=== PATIENT | male | born 1955 | race Caucasian/White ===

== ENCOUNTER 2019-07-02 05:10 | Inpatient (IN) ==
[2019-07-02] MEDS ORDERED: Acetaminophen 325 MG TABLET PO PRN (07:24)
[2019-07-02] MEDS ORDERED: Naloxone 0.4 MG/ML INJ IVP PRN (07:24)
[2019-07-02] MEDS ORDERED: Ondansetron 4 MG/2 ML VIAL IVP PRN (07:24)
[2019-07-02] MEDS ORDERED: *HR* Dextrose 50 % in Water (Syg) 50 ML SYRINGE IVP PRN (08:15)
[2019-07-02] MEDS ORDERED: D5% in Water 1,000 ML IVC PRN (08:15)
[2019-07-02] MEDS ORDERED: Dextrose Gel 15 GM/37.5 ML TUBE PO PRN ×2 (08:15)
[2019-07-02] MEDS ORDERED: Nitroglycerin 0.4 MG TAB.SUBL SL PRN (08:18)
[2019-07-02] MEDS ORDERED: *HR* Heparin 5,000 UNIT/ML VIAL IVP PRN ×2 (08:29)
[2019-07-02 08:42] LABS: INR 1.3; Prothrombin Time 14.5 Seconds (9.4-12.1)
[2019-07-02 08:44] LABS: Activated Partial Thrombo Time 35.5 Seconds (26.0-36.0); Basophils # 0.1 K/mcL (0.0-0.2); Basophils % 0.5 %; Eosinophils % 0.4 %; Hematocrit 40.3 % (37.5-50.1); Hemoglobin 13.1 g/dL (12.9-16.9); Immature Granulocytes % 0.4 % (0-4); Lymphocytes # 1.9 K/mcL (0.6-4.6); Lymphocytes % 17.6 %; Mean Corpuscular HGB Conc 32.5 g/dL (31.6-35.5); Mean Corpuscular Volume 89.2 fL (83.0-100.0); Monocytes % 9.3 %; Neutrophils # 7.7 K/mcL (1.6-8.9); Platelet Count 193 K/mcL (140-400); Red Blood Count 4.52 M/mcL (4.19-5.50); Red Cell Distribution Width 13.2 % (11.5-14.5); Segmented Neutrophils % 71.8 %; White Blood Count 10.7 K/mcL (4.3-11.1)
[2019-07-02 08:56] LABS: Alanine Aminotransferase 25 Units/L (7-52); Albumin/Globulin Ratio 1.3 (1.1-2.2); Alkaline Phosphatase 66 Units/L (34-104); Aspartate Amino Transferase 20 Units/L (13-39); BUN/Creatinine Ratio 22 (6-26); Bilirubin,Total 0.8 mg/dL (0.3-1.0); Blood Urea Nitrogen 19 mg/dL (8-23); Calcium 8.9 mg/dL (8.6-10.3); Carbon Dioxide 26 mEq/L (23-29); Chloride 100 mEq/L (98-107); Chol/HDL Ratio 3.6 (0-4.9); Cholesterol 100 mg/dL (< 200); Globulin 3.1 g/dL (2.4-3.5); Glucose 251 mg/dL (70-105); HDL Cholesterol 28 mg/dL (40-59); LDL Cholesterol,Calculated 55 mg/dL (0-99); Magnesium 1.8 mg/dL (1.6-2.6); Osmolality,Calculated 295 (280-300); Phosphorous 3.7 mg/dL (2.7-4.5); Potassium 3.8 mEq/L (3.5-5.1); Sodium 137 mEq/L (136-145); Total Protein 7.1 g/dL (6.4-8.9); Triglycerides 83 mg/dL (< 150); eGFR For African Americans > 60 (> 60); eGFR For Non-African Americans > 60 (> 60)
[2019-07-02] MEDS ORDERED: Azithromycin 500 MG in 0.9 % Sodium Chloride 250 ML IVPB SCH (09:00)
[2019-07-02] MEDS ORDERED: Isovue-370 500 ML BOTTLE IVP ONE (09:04)
[2019-07-02] MEDS: Furosemide 40 MG/4 ML VIAL IVP SCH ×2 (09:50→19:52)
[2019-07-02] MEDS: cefTRIAXone 1,000 MG in Water for inj. (sterile) 10 ML IVP SCH (09:51)
[2019-07-02] MEDS: Metoprolol XL (24 HR) Succ 25 MG TAB.ER.24H PO SCH (09:51)
[2019-07-02 10:13] LABS: Troponin I 0.81 ng/mL (< 0.04)
[2019-07-02 11:11] LABS: Adenovirus Not Detected (Not Detect); Bordetella Pertussis Not Detected (Not Detect); Chlamydophila pneumoniae Not Detected (Not Detect); Coronavirus 229E Not Detected (Not Detect); Coronavirus HKU1 Not Detected (Not Detect); Coronavirus NL63 Not Detected (Not Detect); Coronavirus OC43 Not Detected (Not Detect); Human Metapneumovirus Not Detected (Not Detect); Human Rhinovirus/Enterovirus Not Detected (Not Detect); Influenza A Subtype 2009 H1 Not Detected (Not Detect); Influenza B Not Detected (Not Detect); Mycoplasma pneumoniae Not Detected (Not Detect); Parainfluenza Virus 1 Not Detected (Not Detect); Parainfluenza Virus 2 Not Detected (Not Detect); Parainfluenza Virus 3 Not Detected (Not Detect); Parainfluenza Virus 4 Not Detected (Not Detect); Respiratory Syncytial Virus Not Detected (Not Detect)
[2019-07-02] MEDS: Insulin LISPRO 300 UNITS/3 ML VIAL SQ SCH ×3 (11:38→23:32)
[2019-07-02] MEDS: Heparin 25,000 UNIT/250 ML D5W 25,000 UNIT/250 ML IV.SOLN IVC SCH (11:48)
[2019-07-02] MEDS: Azithromycin 250 MG TABLET PO SCH (18:07)
[2019-07-02] MEDS: Gabapentin 300 MG CAPSULE PO SCH (21:45)
[2019-07-03] MEDS: Heparin 25,000 UNIT/250 ML D5W 25,000 UNIT/250 ML IV.SOLN IVC SCH (02:26)
[2019-07-03 02:39] LABS: Bilirubin,Urine Negative (Negative); Blood,Urine Negative (Negative); Clarity,Urine Clear (Clear); Color,Urine Yellow (Yellow); Glucose,Urine (UA) Normal (Normal); Ketones,Urine Negative (Negative); Leukocyte Esterase,Urine Negative (Negative); Nitrite,Urine Negative (Negative); Protein,Urine Negative (Neg-Trace); Specific Gravity,Urine 1.024 (1.010-1.025); Urobilinogen,Urine Normal (Normal)
[2019-07-03] MEDS: Insulin LISPRO 300 UNITS/3 ML VIAL SQ SCH ×4 (05:36→22:47)
[2019-07-03] MEDS: Aspirin 81 MG TAB.CHEW PO SCH (08:49)
[2019-07-03] MEDS: cefTRIAXone 1,000 MG in Water for inj. (sterile) 10 ML IVP SCH (08:49)
[2019-07-03] MEDS: Metoprolol XL (24 HR) Succ 25 MG TAB.ER.24H PO SCH (08:49)
[2019-07-03] MEDS: Gabapentin 300 MG CAPSULE PO SCH ×3 (08:49→22:46)
[2019-07-03] MEDS: Furosemide 40 MG/4 ML VIAL IVP SCH ×2 (08:49→22:48)
[2019-07-03] MEDS: *HR* Enoxaparin 120 MG/0.8 ML SYRINGE SQ SCH (16:38)
[2019-07-03] MEDS: Azithromycin 250 MG TABLET PO SCH (16:38)
[2019-07-03] MEDS ORDERED: Insulin LISPRO 300 UNITS/3 ML VIAL SQ SCH (21:00)
[2019-07-03] MEDS: Insulin DETEMIR 100 UNIT/ML X5UNITS SQ SCH (22:45)
[2019-07-04] MEDS: *HR* Enoxaparin 120 MG/0.8 ML SYRINGE SQ SCH ×2 (05:39→16:57)
[2019-07-04] MEDS ORDERED: Sennosides 8.6 MG TABLET PO ONE (06:51)
[2019-07-04] MEDS: cefTRIAXone 1,000 MG in Water for inj. (sterile) 10 ML IVP SCH (08:01)
[2019-07-04] MEDS: Fenofibrate 54 MG TABLET PO SCH (08:01)
[2019-07-04] MEDS: Aspirin 81 MG TAB.CHEW PO SCH (08:01)
[2019-07-04] MEDS: Metoprolol XL (24 HR) Succ 25 MG TAB.ER.24H PO SCH (08:01)
[2019-07-04] MEDS: amLODIPine 5 MG TABLET PO SCH (08:01)
[2019-07-04] MEDS: Gabapentin 300 MG CAPSULE PO SCH ×3 (08:01→22:27)
[2019-07-04] MEDS: Insulin LISPRO 300 UNITS/3 ML VIAL SQ SCH ×4 (08:02→22:27)
[2019-07-04] MEDS: Furosemide 40 MG/4 ML VIAL IVP SCH ×2 (08:02→22:26)
[2019-07-04] MEDS: Insulin DETEMIR 100 UNIT/ML X5UNITS SQ SCH ×2 (08:13→22:27)
[2019-07-04 08:21] LABS: Basophils # 0.1 K/mcL (0.0-0.2); Basophils % 0.4 %; Eosinophils % 0.3 %; Hematocrit 38.5 % (37.5-50.1); Hemoglobin 12.4 g/dL (12.9-16.9); Immature Granulocytes % 0.5 % (0-4); Lymphocytes # 1.4 K/mcL (0.6-4.6); Lymphocytes % 12.6 %; Mean Corpuscular HGB Conc 32.2 g/dL (31.6-35.5); Mean Corpuscular Volume 90.2 fL (83.0-100.0); Mean Platelet Volume 11.1 fL (9.4-12.4); Monocytes # 1.1 K/mcL (0.0-1.3); Monocytes % 10.1 %; Neutrophils # 8.5 K/mcL (1.6-8.9); Platelet Count 182 K/mcL (140-400); Red Blood Count 4.27 M/mcL (4.19-5.50); Red Cell Distribution Width 13.2 % (11.5-14.5); Segmented Neutrophils % 76.1 %; White Blood Count 11.2 K/mcL (4.3-11.1)
[2019-07-04 08:28] LABS: BUN/Creatinine Ratio 28 (6-26); Blood Urea Nitrogen 24 mg/dL (8-23); Calcium 8.7 mg/dL (8.6-10.3); Carbon Dioxide 24 mEq/L (23-29); Chloride 99 mEq/L (98-107); Glucose 231 mg/dL (70-105); Osmolality,Calculated 291 (280-300); Potassium 3.6 mEq/L (3.5-5.1); Sodium 135 mEq/L (136-145); eGFR For African Americans > 60 (> 60); eGFR For Non-African Americans > 60 (> 60)
[2019-07-04] MEDS ORDERED: Furosemide 20 MG/2 ML VIAL IVP ONE (08:41)
[2019-07-04] MEDS ORDERED: *HR* Metoprolol 5 MG/5 ML VIAL IVP PRN (09:18)
[2019-07-04 10:01] LABS: Alanine Aminotransferase 25 Units/L (7-52); Albumin 3.7 g/dL (3.5-5.7); Albumin/Globulin Ratio 1.3 (1.1-2.2); Alkaline Phosphatase 60 Units/L (34-104); Aspartate Amino Transferase 20 Units/L (13-39); Bilirubin,Direct 0.2 mg/dL (0.0-0.2); Bilirubin,Indirect 0.7 mg/dL (0.0-1.0); Bilirubin,Total 0.9 mg/dL (0.3-1.0); Globulin 2.9 g/dL (2.4-3.5); Total Protein 6.6 g/dL (6.4-8.9)
[2019-07-04] MEDS ORDERED: Perflutren Lipid Microsphere 1.3 ML in 0.9 % Sodium Chloride 8.7 ML IVP ONE (10:27)
[2019-07-04] MEDS: lisinopriL 5 MG TABLET PO SCH (14:05)
[2019-07-04] MEDS: Azithromycin 250 MG TABLET PO SCH (16:56)
[2019-07-04] MEDS: Sennosides/Docusate Sodium TABLET PO SCH (22:27)
[2019-07-04] MEDS: Levalbuterol Neb 1.25 MG/3 ML IH SCH (23:26)
[2019-07-05 03:24] LABS: Basophils % 0.2 %; Hemoglobin 11.4 g/dL (12.9-16.9); Immature Granulocytes % 0.6 % (0-4); Lymphocytes # 2.4 K/mcL (0.6-4.6); Lymphocytes % 21.6 %; Mean Corpuscular HGB Conc 32.6 g/dL (31.6-35.5); Mean Corpuscular Hemoglobin 28.1 pg (28.0-33.3); Mean Corpuscular Volume 86.4 fL (83.0-100.0); Mean Platelet Volume 11.4 fL (9.4-12.4); Monocytes # 1.1 K/mcL (0.0-1.3); Monocytes % 9.9 %; Neutrophils # 7.5 K/mcL (1.6-8.9); Platelet Count 191 K/mcL (140-400); Red Blood Count 4.05 M/mcL (4.19-5.50); Red Cell Distribution Width 12.9 % (11.5-14.5); Segmented Neutrophils % 67.7 %
[2019-07-05 03:35] LABS: BUN/Creatinine Ratio 36 (6-26); Blood Urea Nitrogen 32 mg/dL (8-23); Calcium 8.8 mg/dL (8.6-10.3); Carbon Dioxide 26 mEq/L (23-29); Chloride 97 mEq/L (98-107); Glucose 203 mg/dL (70-105); Osmolality,Calculated 291 (280-300); Potassium 3.5 mEq/L (3.5-5.1); Sodium 134 mEq/L (136-145); eGFR For African Americans > 60 (> 60); eGFR For Non-African Americans > 60 (> 60)
[2019-07-05] MEDS: *HR* Enoxaparin 120 MG/0.8 ML SYRINGE SQ SCH ×3 (06:17→16:50)
[2019-07-05] MEDS: Levalbuterol Neb 1.25 MG/3 ML IH SCH ×2 (07:23→21:21)
[2019-07-05] MEDS: Insulin LISPRO 300 UNITS/3 ML VIAL SQ SCH ×4 (08:57→21:01)
[2019-07-05] MEDS: Insulin DETEMIR 100 UNIT/ML X5UNITS SQ SCH ×2 (08:58→21:03)
[2019-07-05] MEDS: lisinopriL 5 MG TABLET PO SCH (08:58)
[2019-07-05] MEDS: Metoprolol XL (24 HR) Succ 25 MG TAB.ER.24H PO SCH (08:58)
[2019-07-05] MEDS: Sennosides/Docusate Sodium TABLET PO SCH ×2 (08:58→20:57)
[2019-07-05] MEDS: Gabapentin 300 MG CAPSULE PO SCH ×3 (08:58→20:57)
[2019-07-05] MEDS: Fenofibrate 54 MG TABLET PO SCH (08:58)
[2019-07-05] MEDS: Aspirin 81 MG TAB.CHEW PO SCH (08:59)
[2019-07-05] MEDS: amLODIPine 5 MG TABLET PO SCH (08:59)
[2019-07-05] MEDS: Furosemide 40 MG/4 ML VIAL IVP SCH ×2 (09:06→20:58)
[2019-07-05] MEDS: cefTRIAXone 1,000 MG in Water for inj. (sterile) 10 ML IVP SCH (09:06)
[2019-07-05] MEDS: Azithromycin 250 MG TABLET PO SCH (16:51)
[2019-07-06 01:53] LABS: Basophils % 0.2 %; Eosinophils % 0.4 %; Hematocrit 33.2 % (37.5-50.1); Hemoglobin 11.2 g/dL (12.9-16.9); Immature Granulocytes % 0.4 % (0-4); Lymphocytes # 2.4 K/mcL (0.6-4.6); Lymphocytes % 21.3 %; Mean Corpuscular HGB Conc 33.7 g/dL (31.6-35.5); Mean Corpuscular Hemoglobin 28.7 pg (28.0-33.3); Mean Corpuscular Volume 85.1 fL (83.0-100.0); Mean Platelet Volume 11.4 fL (9.4-12.4); Monocytes # 1.2 K/mcL (0.0-1.3); Monocytes % 10.9 %; Neutrophils # 7.6 K/mcL (1.6-8.9); Platelet Count 202 K/mcL (140-400); Red Cell Distribution Width 12.9 % (11.5-14.5); Segmented Neutrophils % 66.8 %; White Blood Count 11.4 K/mcL (4.3-11.1)
[2019-07-06 02:14] LABS: BUN/Creatinine Ratio 42 (6-26); Blood Urea Nitrogen 38 mg/dL (8-23); Carbon Dioxide 29 mEq/L (23-29); Chloride 94 mEq/L (98-107); Glucose 200 mg/dL (70-105); Osmolality,Calculated 287 (280-300); Potassium 3.4 mEq/L (3.5-5.1); Sodium 131 mEq/L (136-145); eGFR For African Americans > 60 (> 60); eGFR For Non-African Americans > 60 (> 60)
[2019-07-06] MEDS: *HR* Enoxaparin 120 MG/0.8 ML SYRINGE SQ SCH (06:11)
[2019-07-06] MEDS: Levalbuterol Neb 1.25 MG/3 ML IH SCH ×2 (07:43→22:34)
[2019-07-06] MEDS ORDERED: Potassium Chloride Elixir 20 MEQ/15 ML UDC PO ONE (07:51)
[2019-07-06] MEDS: Insulin DETEMIR 100 UNIT/ML X5UNITS SQ SCH ×2 (08:32→22:12)
[2019-07-06] MEDS: Insulin LISPRO 300 UNITS/3 ML VIAL SQ SCH ×4 (08:32→22:14)
[2019-07-06] MEDS: Fenofibrate 54 MG TABLET PO SCH (08:39)
[2019-07-06] MEDS: amLODIPine 5 MG TABLET PO SCH (08:40)
[2019-07-06] MEDS: Aspirin 81 MG TAB.CHEW PO SCH (08:40)
[2019-07-06] MEDS: lisinopriL 5 MG TABLET PO SCH (08:40)
[2019-07-06] MEDS: Gabapentin 300 MG CAPSULE PO SCH ×3 (08:40→22:04)
[2019-07-06] MEDS: cefTRIAXone 1,000 MG in Water for inj. (sterile) 10 ML IVP SCH (08:40)
[2019-07-06] MEDS: Metoprolol XL (24 HR) Succ 25 MG TAB.ER.24H PO SCH (08:40)
[2019-07-06] MEDS: Furosemide 40 MG/4 ML VIAL IVP SCH ×2 (08:58→22:05)
[2019-07-06] MEDS ORDERED: Heparin 1,000 UNITS/500 mL 500 ML ONE (12:24)
[2019-07-06] MEDS ORDERED: 0.9 % Sodium Chloride 2,000 ML ONE (12:24)
[2019-07-06] MEDS ORDERED: ISOVUE-370 200 ML INFUS..BTL ONE (12:25)
[2019-07-06] MEDS ORDERED: Nitroglycerin 1,000 MCG/10 ML VIAL IV ONE (12:25)
[2019-07-06] MEDS ORDERED: *HR* Heparin 10,000 UNIT/10 ML VIAL ONE (12:25)
[2019-07-06] MEDS ORDERED: *HR* FentaNYL (PF) 100 MCG/2 ML VIAL ONE (12:52)
[2019-07-06] MEDS ORDERED: *HR* Midazolam HCl 2 MG/2 ML VIAL ONE (12:52)
[2019-07-06] MEDS: *HR* Heparin 5,000 UNIT/ML VIAL SQ SCH (16:47)
[2019-07-06] MEDS: Azithromycin 250 MG TABLET PO SCH (16:48)
[2019-07-06] MEDS ORDERED: polyethylene glycoL 3350 17 GM POWD.PACK PO PRN (20:16)
[2019-07-07 01:43] LABS: Hematocrit 34.4 % (37.5-50.1); Hemoglobin 11.7 g/dL (12.9-16.9); Mean Corpuscular Volume 85.1 fL (83.0-100.0); Mean Platelet Volume 10.6 fL (9.4-12.4); Platelet Count 205 K/mcL (140-400); Red Blood Count 4.04 M/mcL (4.19-5.50); Red Cell Distribution Width 12.9 % (11.5-14.5); White Blood Count 9.4 K/mcL (4.3-11.1)
[2019-07-07 02:01] LABS: BUN/Creatinine Ratio 40 (6-26); Blood Urea Nitrogen 35 mg/dL (8-23); Calcium 9.1 mg/dL (8.6-10.3); Carbon Dioxide 27 mEq/L (23-29); Chloride 96 mEq/L (98-107); Estimated Average Glucose 237 mg/dl; Glucose 229 mg/dL (70-105); Osmolality,Calculated 289 (280-300); Potassium 4.2 mEq/L (3.5-5.1); Sodium 132 mEq/L (136-145); eGFR For African Americans > 60 (> 60); eGFR For Non-African Americans > 60 (> 60)
[2019-07-07] MEDS: *HR* Heparin 5,000 UNIT/ML VIAL SQ SCH ×2 (06:06→18:26)
[2019-07-07] MEDS: Aspirin 81 MG TAB.CHEW PO SCH (07:44)
[2019-07-07] MEDS: Gabapentin 300 MG CAPSULE PO SCH ×3 (07:44→20:10)
[2019-07-07] MEDS: lisinopriL 5 MG TABLET PO SCH (07:44)
[2019-07-07] MEDS: Metoprolol XL (24 HR) Succ 25 MG TAB.ER.24H PO SCH (07:45)
[2019-07-07] MEDS: Fenofibrate 54 MG TABLET PO SCH (07:45)
[2019-07-07] MEDS: amLODIPine 5 MG TABLET PO SCH (07:46)
[2019-07-07] MEDS: Insulin LISPRO 300 UNITS/3 ML VIAL SQ SCH ×4 (07:46→20:09)
[2019-07-07] MEDS: Insulin DETEMIR 100 UNIT/ML X5UNITS SQ SCH ×2 (07:47→20:08)
[2019-07-07] MEDS: cefTRIAXone 1,000 MG in Water for inj. (sterile) 10 ML IVP SCH (07:48)
[2019-07-07] MEDS: Furosemide 40 MG/4 ML VIAL IVP SCH (07:48)
[2019-07-07] MEDS: Levalbuterol Neb 1.25 MG/3 ML IH SCH ×2 (11:20→21:08)
[2019-07-07] MEDS: Isosorbide MONOnitrate (24 HR) 30 MG TAB.ER.24H PO SCH (11:35)
[2019-07-07] MEDS: Azithromycin 250 MG TABLET PO SCH (18:27)
[2019-07-07 18:44] LABS: ABG Base Excess 5 mEq/L (-2 to 3); ABG HCO3 29 mEq/L (21-27); ABG Oxygen Saturation 94 % (95-98); ABG PCO2 39 mmHg (35-45); ABG PH 7.48 pH Units (7.32-7.45); ABG PO2 65 mmHg (85-104); ABG TCO2 30 mEq/L (20-26)
[2019-07-07] MEDS ORDERED: Furosemide 40 MG/4 ML VIAL IVP ONE (21:00)
[2019-07-08 02:57] LABS: Basophils # 0.1 K/mcL (0.0-0.2); Basophils % 0.5 %; Eosinophils # 0.2 K/mcL (0.0-0.6); Eosinophils % 2.2 %; Hemoglobin 11.9 g/dL (12.9-16.9); Immature Granulocytes % 0.3 % (0-4); Lymphocytes # 2.8 K/mcL (0.6-4.6); Lymphocytes % 26.7 %; Mean Corpuscular Volume 85.4 fL (83.0-100.0); Monocytes # 1.1 K/mcL (0.0-1.3); Monocytes % 10.7 %; Neutrophils # 6.3 K/mcL (1.6-8.9); Platelet Count 251 K/mcL (140-400); Red Cell Distribution Width 12.8 % (11.5-14.5); Segmented Neutrophils % 59.6 %; White Blood Count 10.5 K/mcL (4.3-11.1)
[2019-07-08 03:14] LABS: BUN/Creatinine Ratio 35 (6-26); Blood Urea Nitrogen 30 mg/dL (8-23); Calcium 9.2 mg/dL (8.6-10.3); Carbon Dioxide 28 mEq/L (23-29); Chloride 95 mEq/L (98-107); Glucose 151 mg/dL (70-105); Osmolality,Calculated 283 (280-300); Potassium 3.7 mEq/L (3.5-5.1); Sodium 132 mEq/L (136-145); eGFR For African Americans > 60 (> 60); eGFR For Non-African Americans > 60 (> 60)
[2019-07-08] MEDS: *HR* Heparin 5,000 UNIT/ML VIAL SQ SCH (05:34)
[2019-07-08] MEDS: Insulin LISPRO 300 UNITS/3 ML VIAL SQ SCH ×2 (07:39→12:13)
[2019-07-08] MEDS ORDERED: Furosemide 40 MG TABLET PO SCH (08:00)
[2019-07-08] MEDS ORDERED: Metoprolol XL (24 HR) Succ 50 MG TAB.ER.24H PO SCH (09:00)
[2019-07-08] MEDS ORDERED: Spironolactone 25 MG TABLET PO SCH (09:00)
[2019-07-08] MEDS ORDERED: Metoprolol XL (24 HR) Succ 25 MG TAB.ER.24H PO SCH ×2 (09:00→21:00)
[2019-07-08] MEDS: Aspirin 81 MG TAB.CHEW PO SCH (09:22)
[2019-07-08] MEDS: Gabapentin 300 MG CAPSULE PO SCH ×2 (09:22→15:22)
[2019-07-08] MEDS: Isosorbide MONOnitrate (24 HR) 30 MG TAB.ER.24H PO SCH (09:22)
[2019-07-08] MEDS: Fenofibrate 54 MG TABLET PO SCH (09:24)
[2019-07-08] MEDS: lisinopriL 5 MG TABLET PO SCH (09:25)
[2019-07-08] MEDS: Insulin DETEMIR 100 UNIT/ML X5UNITS SQ SCH (09:31)
[2019-07-08] MEDS: Levalbuterol Neb 1.25 MG/3 ML IH SCH (10:54)
[2019-07-08 15:15] VITALS: BP 112/74
== END 2019-07-08 15:42 | disposition other institution (70) | DRG 280 ==
LOC: 2NENU → SUATTDRO 07:24 → 2ANU 07-03 22:02
PROVIDERS: ADMIT Internal Medicine; ATTEND Student in an Organized Health Care Education/Training Program

== ENCOUNTER 2019-07-25 22:05 | Observation (INO) ==
[2019-07-25] MEDS ORDERED: Aspirin 81 MG TAB.CHEW PO ONE (22:21)
[2019-07-25] MEDS ORDERED: 0.9 % Sodium Chloride 500 ML IVC STA (22:21)
[2019-07-25 22:39] LABS: Basophils # 0.1 K/mcL (0.0-0.2); Basophils % 0.6 %; Eosinophils # 0.2 K/mcL (0.0-0.6); Eosinophils % 2.3 %; Hematocrit 34.1 % (37.5-50.1); Hemoglobin 11.1 g/dL (12.9-16.9); Immature Granulocytes % 0.4 % (0-4); Lymphocytes # 2.3 K/mcL (0.6-4.6); Lymphocytes % 28.2 %; Mean Corpuscular HGB Conc 32.6 g/dL (31.6-35.5); Mean Corpuscular Hemoglobin 27.9 pg (28.0-33.3); Mean Corpuscular Volume 85.7 fL (83.0-100.0); Mean Platelet Volume 9.5 fL (9.4-12.4); Monocytes # 1.1 K/mcL (0.0-1.3); Neutrophils # 4.6 K/mcL (1.6-8.9); Platelet Count 334 K/mcL (140-400); Red Blood Count 3.98 M/mcL (4.19-5.50); Red Cell Distribution Width 13.3 % (11.5-14.5); Segmented Neutrophils % 55.5 %; White Blood Count 8.3 K/mcL (4.3-11.1)
[2019-07-25 22:43] LABS: INR 1.2; Prothrombin Time 13.1 Seconds (9.4-12.1)
[2019-07-25 22:46] LABS: Activated Partial Thrombo Time 33.6 Seconds (26.0-36.0)
[2019-07-25] MEDS ORDERED: Isovue-370 500 ML BOTTLE IVP ONE (22:53)
[2019-07-25 23:02] LABS: Alanine Aminotransferase 19 Units/L (7-52); Albumin 3.8 g/dL (3.5-5.7); Albumin/Globulin Ratio 1.2 (1.1-2.2); Alkaline Phosphatase 68 Units/L (34-104); Aspartate Amino Transferase 18 Units/L (13-39); BUN/Creatinine Ratio 25 (6-26); Bilirubin,Total 0.4 mg/dL (0.3-1.0); Blood Urea Nitrogen 24 mg/dL (8-23); Calcium 9.3 mg/dL (8.6-10.3); Carbon Dioxide 23 mEq/L (23-29); Chloride 100 mEq/L (98-107); Globulin 3.2 g/dL (2.4-3.5); Glucose 164 mg/dL (70-105); Lipase 54 Units/L (11-82); Magnesium 1.5 mg/dL (1.6-2.6); Osmolality,Calculated 284 (280-300); Potassium 4.3 mEq/L (3.5-5.1); Sodium 133 mEq/L (136-145); eGFR For African Americans > 60 (> 60); eGFR For Non-African Americans > 60 (> 60)
[2019-07-25 23:06] LABS: Troponin I 0.05 ng/mL (< 0.04)
[2019-07-26 00:32] LABS: Bilirubin,Urine Negative (Negative); Blood,Urine Negative (Negative); Clarity,Urine Clear (Clear); Color,Urine Yellow (Yellow); Glucose,Urine (UA) Normal (Normal); Ketones,Urine Negative (Negative); Leukocyte Esterase,Urine Negative (Negative); Nitrite,Urine Negative (Negative); Protein,Urine Negative (Neg-Trace); Specific Gravity,Urine 1.028 (1.010-1.025); Urobilinogen,Urine Normal (Normal)
[2019-07-26] MEDS ORDERED: Ondansetron ODT 4 MG TAB.RAPDIS SL PRN (01:26)
[2019-07-26] MEDS ORDERED: Naloxone 0.4 MG/ML INJ IVP PRN (01:26)
[2019-07-26 02:50] LABS: C-Reactive Protein 27 mg/L (Less than 10)
[2019-07-26] MEDS ORDERED: 0.9 % Sodium Chloride 500 ML IVC SCH (03:00)
[2019-07-26 03:02] LABS: Thyroid Stimulating Hormone 2.044 mcIU/mL (0.340-5.600)
[2019-07-26] MEDS ORDERED: D5% in Water 1,000 ML IVC PRN (03:11)
[2019-07-26] MEDS ORDERED: *HR* Dextrose 50 % in Water (Syg) 50 ML SYRINGE IVP PRN (03:11)
[2019-07-26] MEDS ORDERED: Dextrose Gel 15 GM/37.5 ML TUBE PO PRN ×2 (03:11)
[2019-07-26] MEDS ORDERED: Vancomycin 1,750 MG/517.5 ML IV.SOLN IVPB ONE (04:00)
[2019-07-26 04:41] LABS: Basophils % 0.6 %; Eosinophils # 0.2 K/mcL (0.0-0.6); Eosinophils % 2.8 %; Hematocrit 31.2 % (37.5-50.1); Immature Granulocytes % 0.3 % (0-4); Lymphocytes # 1.9 K/mcL (0.6-4.6); Lymphocytes % 28.6 %; Mean Corpuscular HGB Conc 32.1 g/dL (31.6-35.5); Mean Corpuscular Hemoglobin 27.7 pg (28.0-33.3); Mean Corpuscular Volume 86.4 fL (83.0-100.0); Mean Platelet Volume 9.5 fL (9.4-12.4); Monocytes # 0.9 K/mcL (0.0-1.3); Monocytes % 13.3 %; Neutrophils # 3.7 K/mcL (1.6-8.9); Platelet Count 283 K/mcL (140-400); Red Blood Count 3.61 M/mcL (4.19-5.50); Red Cell Distribution Width 13.5 % (11.5-14.5); Segmented Neutrophils % 54.4 %; White Blood Count 6.8 K/mcL (4.3-11.1)
[2019-07-26 05:03] LABS: BUN/Creatinine Ratio 26 (6-26); Blood Urea Nitrogen 23 mg/dL (8-23); Calcium 8.7 mg/dL (8.6-10.3); Carbon Dioxide 24 mEq/L (23-29); Chloride 103 mEq/L (98-107); Glucose 76 mg/dL (70-105); Osmolality,Calculated 284 (280-300); Sodium 136 mEq/L (136-145); Troponin I 0.05 ng/mL (< 0.04); eGFR For African Americans > 60 (> 60); eGFR For Non-African Americans > 60 (> 60)
[2019-07-26] MEDS: Piperacillin/Tazobactam 3.375 GM in 0.9 % Sodium Chloride Mini Bag 100 ML IVPB SCH ×3 (08:00→23:38)
[2019-07-26] MEDS: Gabapentin 300 MG CAPSULE PO SCH ×3 (09:08→20:50)
[2019-07-26] MEDS: Aspirin 81 MG TAB.CHEW PO SCH (09:08)
[2019-07-26] MEDS: Insulin LISPRO 300 UNITS/3 ML VIAL SQ SCH ×3 (09:21→17:32)
[2019-07-26] MEDS: Insulin DETEMIR 100 UNIT/ML X5UNITS SQ SCH ×2 (12:28→20:55)
[2019-07-26] MEDS: Vancomycin 1,250 MG/262.5 ML IV.SOLN IVPB SCH (17:07)
[2019-07-27 02:37] LABS: Basophils % 0.6 %; Eosinophils # 0.2 K/mcL (0.0-0.6); Eosinophils % 2.9 %; Hematocrit 31.5 % (37.5-50.1); Immature Granulocytes % 0.5 % (0-4); Lymphocytes # 1.5 K/mcL (0.6-4.6); Lymphocytes % 23.3 %; Mean Corpuscular HGB Conc 31.7 g/dL (31.6-35.5); Mean Corpuscular Hemoglobin 27.5 pg (28.0-33.3); Mean Corpuscular Volume 86.8 fL (83.0-100.0); Mean Platelet Volume 9.7 fL (9.4-12.4); Monocytes # 0.8 K/mcL (0.0-1.3); Monocytes % 12.5 %; Platelet Count 287 K/mcL (140-400); Red Blood Count 3.63 M/mcL (4.19-5.50); Red Cell Distribution Width 13.5 % (11.5-14.5); Segmented Neutrophils % 60.2 %; White Blood Count 6.6 K/mcL (4.3-11.1)
[2019-07-27 02:54] LABS: BUN/Creatinine Ratio 18 (6-26); Blood Urea Nitrogen 15 mg/dL (8-23); Calcium 8.5 mg/dL (8.6-10.3); Carbon Dioxide 25 mEq/L (23-29); Chloride 105 mEq/L (98-107); Glucose 186 mg/dL (70-105); Magnesium 1.6 mg/dL (1.6-2.6); Osmolality,Calculated 288 (280-300); Potassium 4.1 mEq/L (3.5-5.1); Sodium 136 mEq/L (136-145); eGFR For African Americans > 60 (> 60); eGFR For Non-African Americans > 60 (> 60)
[2019-07-27] MEDS: Vancomycin 1,250 MG/262.5 ML IV.SOLN IVPB SCH (03:38)
[2019-07-27] MEDS: Insulin LISPRO 300 UNITS/3 ML VIAL SQ SCH ×3 (08:26→18:08)
[2019-07-27] MEDS: lisinopriL 5 MG TABLET PO SCH (08:46)
[2019-07-27] MEDS: Gabapentin 300 MG CAPSULE PO SCH ×3 (08:46→21:56)
[2019-07-27] MEDS: Furosemide 40 MG TABLET PO SCH (08:46)
[2019-07-27] MEDS: Metoprolol XL (24 HR) Succ 25 MG TAB.ER.24H PO SCH (08:46)
[2019-07-27] MEDS: Aspirin 81 MG TAB.CHEW PO SCH (08:46)
[2019-07-27] MEDS: Piperacillin/Tazobactam 3.375 GM in 0.9 % Sodium Chloride Mini Bag 100 ML IVPB SCH ×2 (08:46→15:05)
[2019-07-27] MEDS: Insulin DETEMIR 100 UNIT/ML X5UNITS SQ SCH ×2 (09:00→21:59)
[2019-07-28] MEDS: Piperacillin/Tazobactam 3.375 GM in 0.9 % Sodium Chloride Mini Bag 100 ML IVPB SCH ×2 (00:44→08:00)
[2019-07-28 07:06] LABS: Basophils % 0.5 %; Eosinophils # 0.2 K/mcL (0.0-0.6); Eosinophils % 2.7 %; Hematocrit 30.6 % (37.5-50.1); Hemoglobin 10.1 g/dL (12.9-16.9); Immature Granulocytes % 0.3 % (0-4); Lymphocytes # 1.7 K/mcL (0.6-4.6); Lymphocytes % 23.1 %; Mean Corpuscular Hemoglobin 28.3 pg (28.0-33.3); Mean Corpuscular Volume 85.7 fL (83.0-100.0); Mean Platelet Volume 9.7 fL (9.4-12.4); Monocytes % 13.7 %; Neutrophils # 4.5 K/mcL (1.6-8.9); Platelet Count 263 K/mcL (140-400); Red Blood Count 3.57 M/mcL (4.19-5.50); Red Cell Distribution Width 13.5 % (11.5-14.5); Segmented Neutrophils % 59.7 %; White Blood Count 7.5 K/mcL (4.3-11.1)
[2019-07-28 07:19] VITALS: BP 109/63
[2019-07-28 07:25] LABS: BUN/Creatinine Ratio 16 (6-26); Blood Urea Nitrogen 13 mg/dL (8-23); Calcium 8.6 mg/dL (8.6-10.3); Carbon Dioxide 25 mEq/L (23-29); Chloride 103 mEq/L (98-107); Glucose 128 mg/dL (70-105); Magnesium 1.6 mg/dL (1.6-2.6); Osmolality,Calculated 282 (280-300); Potassium 3.9 mEq/L (3.5-5.1); Sodium 135 mEq/L (136-145); eGFR For African Americans > 60 (> 60); eGFR For Non-African Americans > 60 (> 60)
[2019-07-28] MEDS: Insulin LISPRO 300 UNITS/3 ML VIAL SQ SCH ×2 (07:58→12:22)
[2019-07-28] MEDS: Metoprolol XL (24 HR) Succ 25 MG TAB.ER.24H PO SCH (07:59)
[2019-07-28] MEDS: lisinopriL 5 MG TABLET PO SCH (08:00)
[2019-07-28] MEDS: Gabapentin 300 MG CAPSULE PO SCH (08:00)
[2019-07-28] MEDS: Aspirin 81 MG TAB.CHEW PO SCH (08:00)
[2019-07-28] MEDS: Furosemide 40 MG TABLET PO SCH (08:00)
[2019-07-28] MEDS: Insulin DETEMIR 100 UNIT/ML X5UNITS SQ SCH (08:22)
== END 2019-07-28 13:20 | disposition home or self-care (01) ==
LOC: 2NENU 22:05 → EMEROOARM 22:05 → SUATTDRO 07-26 00:05 → 2NENU 07-26 01:11 → 3NENU 07-26 19:19
PROVIDERS: ADMIT Internal Medicine; ATTEND Pharmacist

== ENCOUNTER 2021-12-21 13:40 | Inpatient (IN) ==
[2021-12-21 15:26] LABS: Hematocrit 33.3 % (37.5-50.1); Hemoglobin 10.5 g/dL (12.9-16.9); Mean Corpuscular HGB Conc 31.5 g/dL (31.6-35.5); Mean Corpuscular Hemoglobin 27.8 pg (28.0-33.3); Mean Corpuscular Volume 88.1 fL (83.0-100.0); Mean Platelet Volume 10.2 fL (9.4-12.4); Platelet Count 241 K/mcL (140-400); Red Blood Count 3.78 M/mcL (4.19-5.50); Red Cell Distribution Width 13.8 % (11.5-14.5); White Blood Count 11.9 K/mcL (4.3-11.1)
[2021-12-21] MEDS ORDERED: cefTRIAXone 1,000 MG in 0.9 % Sodium Chloride Mini Bag 100 ML IVPB STA (15:30)
[2021-12-21 15:38] LABS: Albumin/Globulin Ratio 1.1 (1.1-2.2); Bilirubin,Direct 0.2 mg/dL (0.0-0.2); Bilirubin,Indirect 0.5 mg/dL (0.0-1.0); Bilirubin,Total 0.7 mg/dL (0.3-1.0); Calcium 9.2 mg/dL (8.6-10.3); Globulin 3.5 g/dL (2.4-3.5); Potassium 4.5 mEq/L (3.5-5.1); Total Protein 7.5 g/dL (6.4-8.9)
[2021-12-21 16:31] LABS: Bacteria,Urine Few per hpf (None-Few); Bilirubin,Urine Negative (Negative); Blood,Urine Small (Negative); Clarity,Urine Turbid (Clear); Color,Urine Light-Yellow (Yellow); Glucose,Urine (UA) >=1000 mg/dL (Normal); Ketones,Urine Negative (Negative); Leukocyte Esterase,Urine Moderate (Negative); Mucus,Urine Few per lpf (None-Few); Nitrite,Urine Positive (Negative); Protein,Urine 50 mg/dL (Neg-Trace); RBC,Urine 0-3 per hpf (0-3); Specific Gravity,Urine 1.024 (1.010-1.025); Squamous Epithelial Cell,Urine Few per hpf (None-Few); Urobilinogen,Urine Normal (Normal); WBC,Urine TNTC per hpf (0-3)
[2021-12-21] MEDS ORDERED: Naloxone 0.4 MG/ML INJ IVP PRN (17:30)
[2021-12-21] MEDS ORDERED: Melatonin 3 MG TABLET PO PRN (17:30)
[2021-12-21] MEDS ORDERED: Ondansetron ODT 4 MG TAB.RAPDIS SL PRN (17:30)
[2021-12-21] MEDS ORDERED: 0.9 % Sodium Chloride 500 ML IVC ONE (17:36)
[2021-12-21] MEDS ORDERED: D5% in Water 1,000 ML IVC PRN (18:37)
[2021-12-21] MEDS ORDERED: Dextrose Gel 15 GM/37.5 ML TUBE PO PRN ×2 (18:37)
[2021-12-21] MEDS ORDERED: *HR* Dextrose 50 % in Water (Syg) 50 ML SYRINGE IVP PRN (18:37)
[2021-12-21] MEDS ORDERED: 0.9 % Sodium Chloride 1,000 ML IV SCH (18:45)
[2021-12-21] MEDS ORDERED: Insulin DETEMIR 100 UNIT/ML X5UNITS SUBQ SCH (21:00)
[2021-12-21] MEDS: Insulin LISPRO 300 UNITS/3 ML VIAL SUBQ SCH (21:08)
[2021-12-21] MEDS ORDERED: Ondansetron ODT 4 MG TAB.RAPDIS PO PRN (21:26)
[2021-12-21] MEDS ORDERED: *HR* Heparin 5,000 UNIT/ML VIAL SQ SCH (21:30)
[2021-12-21] MEDS ORDERED: Acetaminophen IV 1,000 MG/100 ML BAG IVPB ONE (23:16)
[2021-12-22 00:16] LABS: Influenza A PCR Negative (Negative); Influenza B PCR Negative (Negative); Resp. Syncytial Virus PCR Negative (Negative)
[2021-12-22 00:20] LABS: SARS-CoV-2 by PCR (In House) Negative (Negative)
[2021-12-22 04:48] LABS: Basophils % 0.4 %; Eosinophils % 0.1 %; Hematocrit 30.2 % (37.5-50.1); Hemoglobin 9.8 g/dL (12.9-16.9); Immature Granulocytes % 0.9 % (0-4); Lymphocytes # 1.3 K/mcL (0.6-4.6); Lymphocytes % 12.3 %; Mean Corpuscular HGB Conc 32.5 g/dL (31.6-35.5); Mean Corpuscular Hemoglobin 28.2 pg (28.0-33.3); Mean Platelet Volume 10.1 fL (9.4-12.4); Monocytes # 1.1 K/mcL (0.0-1.3); Monocytes % 10.7 %; Platelet Count 212 K/mcL (140-400); Red Blood Count 3.47 M/mcL (4.19-5.50); Red Cell Distribution Width 13.9 % (11.5-14.5); Segmented Neutrophils % 75.6 %; White Blood Count 10.6 K/mcL (4.3-11.1)
[2021-12-22 04:56] LABS: CTX-M ESBL Gene Not Detected (Not Detect); IMP Carbapenem-Resist Gene Not Detected (Not Detect); NDM Carbapenem-Resist Gene Not Detected (Not Detect); OXA-48-like Carbap-Resist Gene Not Detected (Not Detect); VIM Carbapenem-Resist Gene Not Detected (Not Detect); blaKPC Carbapenem-Resist Gene Not Detected (Not Detect)
[2021-12-22 04:57] LABS: A.calcoaceticus-baumannii cplx Not Detected (Not Detect); Bacteroides fragilis by PCR Not Detected (Not Detect); Candida albicans by PCR Not Detected (Not Detect); Candida auris by PCR Not Detected (Not Detect); Candida glabrata by PCR Not Detected (Not Detect); Candida krusei by PCR Not Detected (Not Detect); Candida parapsilosis by PCR Not Detected (Not Detect); Candida tropicalis by PCR Not Detected (Not Detect); Crypto. neoformans/gattii PCR Not Detected (Not Detect); Enterobacter cloacae Cmplx PCR Not Detected (Not Detect); Enterococcus faecalis by PCR Not Detected (Not Detect); Enterococcus faecium by PCR Not Detected (Not Detect); Escherichia coli by PCR DETECTED (Not Detect); Klebs. pneumoniae group by PCR Not Detected (Not Detect); Klebsiella aerogenes by PCR Not Detected (Not Detect); Klebsiella oxytoca by PCR Not Detected (Not Detect); Proteus by PCR Not Detected (Not Detect); Pseudomonas aeruginosa by PCR Not Detected (Not Detect); Salmonella species by PCR Not Detected (Not Detect); Serratia marcescens by PCR Not Detected (Not Detect); Staph epidermidis by PCR Not Detected (Not Detect); Staph lugdunensis by PCR Not Detected (Not Detect); Staphylococcus aureus by PCR Not Detected (Not Detect); Staphylococcus by PCR Not Detected (Not Detect); Stenotrophomonas maltophilia Not Detected (Not Detect); Streptococcus agalactiae(B)PCR Not Detected (Not Detect); Streptococcus by PCR Not Detected (Not Detect); Streptococcus pneumoniae PCR Not Detected (Not Detect); Streptococcus pyogenes (A) PCR Not Detected (Not Detect); mcr-1 Colistin-Resist Gene Not Detected (Not Detect)
[2021-12-22 04:57] LABS: INR 1.3; Prothrombin Time 14.9 Seconds (9.4-12.1)
[2021-12-22 05:00] LABS: Activated Partial Thrombo Time 30.7 Seconds (26.0-36.0)
[2021-12-22 05:08] LABS: Calcium 9.1 mg/dL (8.6-10.3); Chol/HDL Ratio 6.5 (0-4.9); Magnesium 2.1 mg/dL (1.6-2.6); Phosphorous 2.9 mg/dL (2.7-4.5); Potassium 4.4 mEq/L (3.5-5.1)
[2021-12-22 05:12] LABS: Troponin I 1.27 ng/mL (< 0.04)
[2021-12-22] MEDS ORDERED: *HR* Heparin 5,000 UNIT/ML VIAL IVP ONE (05:22)
[2021-12-22] MEDS ORDERED: *HR* Heparin 5,000 UNIT/ML VIAL IVP PRN (05:22)
[2021-12-22 06:28] LABS: Hematocrit 30.3 % (37.5-50.1); Hemoglobin 9.8 g/dL (12.9-16.9); Mean Corpuscular HGB Conc 32.3 g/dL (31.6-35.5); Mean Corpuscular Hemoglobin 27.8 pg (28.0-33.3); Mean Corpuscular Volume 86.1 fL (83.0-100.0); Mean Platelet Volume 10.3 fL (9.4-12.4); Platelet Count 216 K/mcL (140-400); Red Blood Count 3.52 M/mcL (4.19-5.50); Red Cell Distribution Width 13.8 % (11.5-14.5); White Blood Count 10.1 K/mcL (4.3-11.1)
[2021-12-22] MEDS: Heparin 25,000UNIT/250ML 1/2NS 25,000 UNIT/250 ML IV.SOLN IVC SCH (06:59)
[2021-12-22] MEDS: Insulin LISPRO 300 UNITS/3 ML VIAL SUBQ SCH ×6 (07:24→20:36)
[2021-12-22] MEDS ORDERED: Acetaminophen 325 MG TABLET PO PRN (08:33)
[2021-12-22] MEDS: Aspirin 81 MG TAB.CHEW PO SCH (09:00)
[2021-12-22] MEDS ORDERED: cefTRIAXone 2,000 MG in 0.9 % Sodium Chloride 20 ML IVP SCH (09:00)
[2021-12-22] MEDS: Ranolazine 500 MG TAB.ER.12H PO SCH ×2 (09:00→20:36)
[2021-12-22] MEDS ORDERED: cefTRIAXone 1,000 MG in 0.9 % Sodium Chloride 10 ML IVP SCH (09:00)
[2021-12-22] MEDS: Metoprolol XL (24 HR) Succ 50 MG TAB.ER.24H PO SCH (09:01)
[2021-12-22 11:22] LABS: Estimated Average Glucose 246 mg/dl; Hemoglobin A1C 10.2 %
[2021-12-22] MEDS: Piperacillin/Tazobactam 3.375 GM in 0.9 % Sodium Chloride Mini Bag 100 ML IVPB SCH ×3 (12:52→23:29)
[2021-12-22 18:10] LABS: Amphetamine Screen,Urine Negative ng/mL (Cutoff=1000); Barbiturate Screen,Urine Negative ng/mL (Cutoff=200); Benzodiazepines Screen,Urine Negative ng/mL (Cutoff=200); Cannabinoid Screen,Urine Negative ng/mL (Cutoff = 50); Cocaine Screen,Urine Negative ng/mL (Cutoff= 300); Opiate Screen,Urine Negative ng/mL (Cutoff=300); Phencyclidine Screen,Urine Negative ng/mL (Cutoff=25)
[2021-12-22] MEDS: *HR* Heparin 5,000 UNIT/ML VIAL IVP PRN (21:40)
[2021-12-23] MEDS: Heparin 25,000UNIT/250ML 1/2NS 25,000 UNIT/250 ML IV.SOLN IVC SCH ×3 (03:37→19:34)
[2021-12-23 05:33] LABS: Basophils % 0.4 %; Eosinophils # 0.2 K/mcL (0.0-0.6); Eosinophils % 1.7 %; Hematocrit 27.1 % (37.5-50.1); Hemoglobin 8.8 g/dL (12.9-16.9); Immature Granulocytes % 0.7 % (0-4); Lymphocytes # 1.9 K/mcL (0.6-4.6); Lymphocytes % 20.7 %; Mean Corpuscular HGB Conc 32.5 g/dL (31.6-35.5); Mean Corpuscular Hemoglobin 27.6 pg (28.0-33.3); Mean Platelet Volume 10.2 fL (9.4-12.4); Monocytes % 10.5 %; Platelet Count 196 K/mcL (140-400); Red Blood Count 3.19 M/mcL (4.19-5.50); Red Cell Distribution Width 13.7 % (11.5-14.5); White Blood Count 9.1 K/mcL (4.3-11.1)
[2021-12-23 05:56] LABS: Calcium 8.4 mg/dL (8.6-10.3); Magnesium 2.2 mg/dL (1.6-2.6); Potassium 3.9 mEq/L (3.5-5.1); Troponin I 2.38 ng/mL (< 0.04)
[2021-12-23] MEDS: Aspirin 81 MG TAB.CHEW PO SCH (08:13)
[2021-12-23] MEDS: Ranolazine 500 MG TAB.ER.12H PO SCH ×2 (08:13→21:27)
[2021-12-23] MEDS: Metoprolol XL (24 HR) Succ 50 MG TAB.ER.24H PO SCH (08:13)
[2021-12-23] MEDS: Piperacillin/Tazobactam 3.375 GM in 0.9 % Sodium Chloride Mini Bag 100 ML IVPB SCH ×2 (08:15→17:13)
[2021-12-23] MEDS: Insulin LISPRO 300 UNITS/3 ML VIAL SUBQ SCH ×4 (08:16→21:27)
[2021-12-23] MEDS: Insulin DETEMIR 100 UNIT/ML X5UNITS SUBQ SCH (12:37)
[2021-12-23] MEDS ORDERED: 0.9 % Sodium Chloride 500 ML IVC SCH (15:00)
[2021-12-24] MEDS: Piperacillin/Tazobactam 3.375 GM in 0.9 % Sodium Chloride Mini Bag 100 ML IVPB SCH ×2 (00:57→08:34)
[2021-12-24 02:20] LABS: Basophils % 0.4 %; Eosinophils # 0.2 K/mcL (0.0-0.6); Eosinophils % 2.6 %; Hematocrit 27.3 % (37.5-50.1); Immature Granulocytes % 1.2 % (0-4); Lymphocytes # 1.9 K/mcL (0.6-4.6); Lymphocytes % 27.8 %; Mean Corpuscular Hemoglobin 28.2 pg (28.0-33.3); Mean Corpuscular Volume 85.6 fL (83.0-100.0); Mean Platelet Volume 10.5 fL (9.4-12.4); Monocytes # 0.7 K/mcL (0.0-1.3); Monocytes % 9.8 %; Platelet Count 224 K/mcL (140-400); Red Blood Count 3.19 M/mcL (4.19-5.50); Red Cell Distribution Width 13.7 % (11.5-14.5); Segmented Neutrophils % 58.2 %; White Blood Count 6.9 K/mcL (4.3-11.1)
[2021-12-24] MEDS: *HR* Heparin 5,000 UNIT/ML VIAL IVP PRN (02:24)
[2021-12-24 02:31] LABS: Calcium 8.4 mg/dL (8.6-10.3); Magnesium 2.2 mg/dL (1.6-2.6); Potassium 4.1 mEq/L (3.5-5.1)
[2021-12-24 06:58] VITALS: TEMP 98.2
[2021-12-24] MEDS: Ranolazine 500 MG TAB.ER.12H PO SCH (08:34)
[2021-12-24] MEDS: Aspirin 81 MG TAB.CHEW PO SCH (08:34)
[2021-12-24] MEDS: Metoprolol XL (24 HR) Succ 50 MG TAB.ER.24H PO SCH (08:34)
[2021-12-24] MEDS: Insulin LISPRO 300 UNITS/3 ML VIAL SUBQ SCH ×2 (08:35→12:42)
[2021-12-24] MEDS: Insulin DETEMIR 100 UNIT/ML X5UNITS SUBQ SCH (08:36)
[2021-12-24 10:39] VITALS: BP 116/66; PULSE 73; O2SAT 96
[2022-01-13] MEDS ORDERED: Cyanocobalamin (B-12) 1,000 MCG/ML VIAL IM SCH (09:00)
== END 2021-12-24 13:08 | disposition home or self-care (01) | DRG 871 ==
LOC: 3ANU 13:40 → EMEROOARM 13:40 → SUATTDRO 17:56 → 3ANU 19:44
PROVIDERS: ADMIT Internal Medicine; ATTEND Internal Medicine